=== PATIENT | male | born 1990 | race Caucasian/White ===

== ENCOUNTER 2016-04-21 00:31 | Emergency (ER) | payer OTHER ==
[~2016-04-21] VITALS: Ht 182.9 cm; Wt 95.7 kg
[2016-04-21 02:21] VITALS: BP 120/83
== END 2016-04-21 02:22 | disposition home or self-care (01) ==
LOC: EME 00:31
PROC: 0HQ1XZZ Repair Face Skin, External Approach (ICD-10-PCS; principal; 2016-04-21)
PROC: 3E0234Z Introduction of Serum, Toxoid and Vaccine into Muscle, Percutaneous Approach (ICD-10-PCS; 2016-04-21)
DX: S01.21XA Laceration without foreign body of nose, initial encounter (principal); V00.311A Fall from snowboard, initial encounter; Y93.23 Activity, snow (alpine) (downhill) skiing, snowboarding, sledding, tobogganing and snow tubing; M54.2 Cervicalgia; Z23 Encounter for immunization
CPT/HCPCS: 99281; 99283